=== PATIENT | male | born 1935 | race Caucasian/White ===

== ENCOUNTER 2021-02-11 16:16 | Inpatient (IN) | payer MEDICARE, OTHER ==
[2021-02-11] VITALS (10 sets, daily range): BP systolic 99–118; BP diastolic 49–64
[~2021-02-11] VITALS: Ht 172.7 cm; Wt 51.7 kg
[2021-02-11] MEDS: methylPREDNISolone SOD SUCC 40 MG/ML VIAL IV SCH ×3 (06:00→18:00)
--- NOTE | 2021-02-11 16:18 | NUR ---
PT BIBRA FROM [facility] TO ER BED 05, PER REPORT, PT IS COVID 19 POSITIVE AND WAS NOTED WITH O2 DESATURATION. WHILE BEING TRANSPORTED TO THE HOSPITAL, PT WAS NOTED TO BE UNRESPONSIVE. PT BEING BAG PT. PLACED ON MONITOR. AWAITING MD RODRIGUEZ.
--- NOTE | 2021-02-11 16:20 | NUR ---
IV LINE STARTED BLOOD DRAWN AND SENT TO LAB.
[2021-02-11] MEDS ORDERED: ROCURONIUM BROMIDE 50 MG/5 ML IV ONE (16:26)
[2021-02-11] MEDS ORDERED: ETOMIDATE 2 MG/ML VIAL IV ONE (16:26)
--- NOTE | 2021-02-11 16:48 | NUR ---
CPR INITIATED. SEE CARDIOPULMONARY ARREST RECORD.
[2021-02-11 16:53] LABS: BILIRUBIN,URINE Negative (NEGATIVE); COLOR,URINE YELLOW (YELLOW); LEUKOCYTE ESTERASE ,URINE Negative (NEGATIVE); NITRITE, URINE Negative (NEGATIVE); PH,URINE 5.5 (5.0-8.0); PROTEIN,URINE 100 mg/dl (NEGATIVE); UGLUCOSE 100 MG/DL mg/dL (NEGATIVE); UROBILINOGEN,URINE 0.2 EU/dL (0.2)
[2021-02-11 16:55] LABS: BASOPHILS % (AUTO) 0.1 % (0.0-2.0); HEMATOCRIT 37 % (39-51); LYMPHOCYTES # (AUTO) 0.3 K/uL (0.8-4.8); LYMPHOCYTES % (AUTO) 3.6 % (20.0-44.0); MEAN CORPUSCULAR HGB CONC 33 g/dl (31.0-36.0); MEAN CORPUSCULAR VOLUME 99 fL (80-96); MONOCYTES # (AUTO) 0.2 K/uL (0.1-1.30); MONOCYTES % (AUTO) 2.6 % (2.0-12.0); NEUTROPHILS # (AUTO) 7.9 K/uL (1.8-8.9); NEUTROPHILS % (AUTO) 93.7 % (43.0-81.0); PLATELET COUNT (AUTO) 176 K/uL (150-450); WHITE BLOOD COUNT (AUTO) 8.5 K/uL (4.3-11.0)
[2021-02-11 16:56] LABS: BACTERIA,URINE Rare /HPF (None Seen); RBC,URINE NONE SEEN /HPF (0-2); SQUAMOUS EPITHELIAL CELL,UR Few /HPF (None Seen); WBC,URINE NONE SEEN /HPF (0-3)
[2021-02-11] MEDS ORDERED: CEFEPIME 1 GM in IV D5W 50 ML IV ONE (17:00)
[2021-02-11] MEDS ORDERED: VANCOMYCIN 1 GM in IV D5W 250 ML IV ONE (17:00)
[2021-02-11] MEDS ORDERED: DEXAMETHASONE SOD PHOSPHATE 10 MG/ML VIAL IV ONE (17:00)
--- NOTE | 2021-02-11 17:07 | NUR ---
DR ENNIS BACK AT BEDSIDE FOR CENTRAL LINE PLACEMENT.
[2021-02-11 17:19] LABS: ALANINE AMINOTRANSFERASE 17 U/L (12-78); ALBUMIN 1.8 g/dL (3.4-5.0); ALKALINE PHOSPHATASE 84 U/L (46-116); ASPARTATE AMINOTRANSFERASE 19 U/L (15-37); BILIRUBIN,DIRECT 0.2 mg/dL (0.0-0.2); BILIRUBIN,TOTAL 0.5 mg/dL (0.2-1.0); CALCIUM, SERUM 8.9 mg/dL (8.5-10.1); CARBON DIOXIDE 27 mmol/L (21-32); CHLORIDE 109 mmol/L (98-107); CREATININE 2.3 mg/dL (0.6-1.3); POTASSIUM 3.6 mmol/L (3.5-5.1); SODIUM SERUM 146 mmol/L (136-145); TOTAL PROTEIN, SERUM 6.6 g/dL (6.4-8.2); UREA NITROGEN, BLOOD 63 mg/dL (7-18)
[2021-02-11 17:23] LABS: GLUCOSE 367 mg/dL (74-106)
[2021-02-11] MEDS ORDERED: DEXAMETHASONE SOD PHOSPHATE 10 MG/ML VIAL ONE (17:35)
[2021-02-11] MEDS ORDERED: MAGN400O6 PO (17:40)
[2021-02-11] MEDS ORDERED: ALBU8.5H8 IH (17:40)
[2021-02-11] MEDS ORDERED: ROSU10TA2 PO (17:40)
[2021-02-11] MEDS ORDERED: FURO-144 PO (17:40)
[2021-02-11] MEDS ORDERED: ASCO-352 PO (17:40)
[2021-02-11] MEDS ORDERED: BENZ-13 PO (17:40)
[2021-02-11] MEDS ORDERED: AZIT250T13 PO (17:40)
[2021-02-11] MEDS ORDERED: POTA10TA10 PO (17:40)
[2021-02-11] MEDS ORDERED: CYAN1TAB66 PO (17:40)
[2021-02-11] MEDS ORDERED: PANT40TA2 PO (17:40)
[2021-02-11] MEDS ORDERED: TIOT18CA3 IH (17:40)
[2021-02-11] MEDS ORDERED: NA P133E RC (17:40)
[2021-02-11] MEDS ORDERED: CARV25TA2 PO (17:40)
[2021-02-11] MEDS ORDERED: AMLO-213 PO (17:40)
[2021-02-11] MEDS ORDERED: INSU100V11 SQ (17:40)
[2021-02-11] MEDS ORDERED: ACET-868 PO ×2 (17:40)
[2021-02-11] MEDS ORDERED: BISA10SU11 RC (17:40)
[2021-02-11] MEDS ORDERED: MELA5TAB PO (17:40)
--- NOTE | 2021-02-11 17:45 | NUR ---
MOVE SHEET SUBMITTED AND CALLED FOR ICU BED.
--- NOTE | 2021-02-11 17:50 | NUR ---
DR ENNIS MADE AWARE OF LOW B/P. AWAITING NEW ORDER.
[2021-02-11] MEDS ORDERED: ZOLPIDEM TARTRATE 5 MG TABLET PO PRN (18:00)
[2021-02-11] MEDS ORDERED: MAGNESIUM HYDROXIDE 30 ML UDC PO PRN (18:00)
[2021-02-11] MEDS ORDERED: ACETAMINOPHEN 325 MG TABLET PO PRN ×2 (18:00)
[2021-02-11] MEDS ORDERED: NOREPINEPHRINE 8 MG in IV NS 0.9% 242 ML IV PRN (18:00)
[2021-02-11] MEDS ORDERED: NA PHOS,M-B/NA PHOS,DI-BA 1 EA ENEMA RC PRN (18:00)
[2021-02-11] MEDS ORDERED: MAG HYDROX/AL HYDROX/SIMETH 30 ML UDC PO PRN (18:00)
[2021-02-11] MEDS ORDERED: DEXTROSE 50%-WATER 50 ML DISP.SYRIN IV PRN (18:00)
[2021-02-11] MEDS ORDERED: ONDANSETRON HCL/PF 4 MG/2 ML VIAL IVP PRN (18:00)
[2021-02-11] MEDS ORDERED: Z GUARD REMEDY 2 OZ OINT TP PRN (18:00)
[2021-02-11] MEDS ORDERED: AMIODARONE 150 MG/3 ML VIAL IV ONE (18:00)
[2021-02-11] MEDS ORDERED: ALBUTEROL SULFATE INH 18 GM HFA.AER.AD IH PRN (18:00)
[2021-02-11 18:30] LABS: ABG BASE EXCESS -6.6 mmol/L; ABG OXYGEN SATURATION 98.4 % (92.0-98.5); ABG PCO2 53.4 mmHg (35.0-45.0); ABG PH 7.219 (7.350-7.450); ABG PO2 221.6 mmHg (75.0-100.0); COHb 0.3 % (0.5-1.5); MetHb 0.6 % (0.0-1.5); O2Hb 97.5 % (94.0-97.0); PEEP,BG 0 cm H2O; SITE, ABG Right Femoral; VT, ABG 450 mL
[2021-02-11] MEDS ORDERED: AMIODARONE 150 MG in IV D5W 100 ML IV ONE (18:30)
--- NOTE | 2021-02-11 18:30 | NUR ---
VENT SETTINGS CHANGED. AC 30, TV 450, FI02 50%
--- NOTE | 2021-02-11 18:49 | NUR ---
DAUGHTER LEFT NUMBER FOR ANY UPDATES ON ICU BED. ABLE TO REACH HER AT [phone] ADRIANO BAEZA.
[2021-02-11] MEDS: AMIODARONE 450 MG in IV D5W 241 ML IV PRN (18:54)
[2021-02-11 19:05] LABS: D-DIMER 1.95 mg/L(FEU (0.17-0.50)
--- NOTE | 2021-02-11 19:15 | NUR ---
REPORT TO ALYCIA RODRIGUEZ FOR CHERIE.
--- NOTE | 2021-02-11 19:19 | NUR ---
CALLED LAB FOR COVID SWAB
[2021-02-11] MEDS ORDERED: VANCOMYCIN 1 GM VIAL ONE (19:22)
[2021-02-11] MEDS ORDERED: CEFEPIME 1 GM VIAL ONE (19:22)
[2021-02-11] MEDS ORDERED: NS 0.9% IV ONE (19:30)
[2021-02-11] MEDS ORDERED: ASPIRIN 300 MG/SUPP.RECT RC ONE ×2 (20:00→22:00)
--- NOTE | 2021-02-11 20:03 | NUR ---
BED 252
--- NOTE | 2021-02-11 20:20 | NUR ---
ATTEMPTED TO GIVE REPORT. RN IN PT ROOM
--- NOTE | 2021-02-11 20:28 | NUR ---
GAVE REPORT TO MICHAEL GARCIA FOR CHERIE
--- NOTE | 2021-02-11 20:45 | NUR ---
RT NOTE PT TRANSFERRED TO ICU 252. VENT IS ON ORDERED SETTINGS. PLUGGED INTO RED OUTLET. BMV @ HOB. ALARMS SET AND AUDIBLE. NO DISTRESS NOTED @ THIS TIME. ETT IS SECURE AND PATENT.
--- NOTE | 2021-02-11 20:47 | NUR ---
RECEIVED PT FROM ER INTUBATED EYES OPEN NOT FOLLOWING ANY COMMAND, ON VENT SETTINF PER MD FIO2 50% SPO2 97% PT IS STARTED TO MOVE HIS ARM, SECURE ORDER FOR PROPOFOL FROM HOSPITALIST ARI WILL START ONCE VERIFIED, SAFELY TRANSFER FROM [facility] TO [facility] HOOKED TO MONITOR WITH CURRENT READING SINUS RHYTHM 69 WITH BBB, PT CURRENTLY ON AMIODARONE DRIP @ 1 MG/MIN AND LEVOPHED @ 0.7 MCG/KG/MIN INFUSING WELL VIA R FEM 3L CENTRAL LINE, HEAD TO TOE ASSESSMENT WAS DONE, ADMISSION ASSESSMENT DONE, DROPLET ISOLATION INITIATED FOR R/O COVID 19 BED ON LOWEST POSITION AND LOCKED SIDE RAILS UP X2 BILATERAL SOFT WRIST RESTRAINTS STARTED FOR SELF EXTUBATION PRECAUTION CIRCULATION WILL BE CHECKED REGULARLY WILL CONT TO MONITOR
[2021-02-11] MEDS ORDERED: FENTANYL CITRAT IV 2,500 MCG in IV NS 0.9% 200 ML IV PRN (21:00)
[2021-02-11] MEDS ORDERED: PROPOFOL 100 ML IV PRN (21:00)
[2021-02-11] MEDS: PROPOFOL 100 ML IV PRN (21:20)
[2021-02-11] MEDS ORDERED: NOREPINEPHRINE 8MG/250ML RTU 250 ML IV ONE (21:33)
[2021-02-11] MEDS: NOREPINEPHRINE 8 MG in IV NS 0.9% 242 ML IV PRN (21:53)
[2021-02-11] MEDS ORDERED: PIPERACILLIN /TAZOBACTAM 2.25 G VIAL IV ONE (22:19)
[2021-02-11] MEDS: ZOSYN IVPB 2.25 G in IV D5W 50ml IV SCH (22:36)
[2021-02-11] MEDS: BLOOD SUGAR DIAGNOSTIC 1 EACH STRIP VI SCH (22:36)
[2021-02-11] MEDS: *INSULIN REGULAR(HUMULIN R)HUM 100 UNIT/ML VIAL SQ PRN (22:58)
[2021-02-12] VITALS (94 sets, daily range): BP systolic 77–135; BP diastolic 35–74
[2021-02-12] MEDS: methylPREDNISolone SOD SUCC 40 MG/ML VIAL IV SCH ×3 (00:31→05:33)
--- NOTE | 2021-02-12 00:51 | NUR ---
CALLED [facility] AND ASK REGARDING THE COVID VAX STATUS OF THE PT, PER THE NURSE ON DUTY THEY DONT HAVE ANY DATA REGARDING THE PT COVID VAX WILL FOLLOW UP WITH PT CHILD IN MORNING
[2021-02-12] MEDS ORDERED: NOREPINEPHRINE 8MG/250ML RTU 250 ML IV ONE (00:56)
[2021-02-12] MEDS: NOREPINEPHRINE 8 MG in IV NS 0.9% 242 ML IV PRN (00:57)
[2021-02-12] MEDS: AMIODARONE 450 MG in IV D5W 241 ML IV PRN ×2 (03:04→18:40)
[2021-02-12] MEDS ORDERED: NOREPINEPHRINE 4 MG/4 ML AMPUL IV ONE (03:35)
[2021-02-12] MEDS: ZOSYN IVPB 2.25 G in IV D5W 50ml IV SCH ×4 (03:57→21:12)
[2021-02-12] MEDS: PROPOFOL 100 ML IV PRN ×2 (04:37→17:46)
[2021-02-12] MEDS: NOREPINEPHRINE 32 MG in IV NS 0.9% 218 ML IV PRN ×2 (04:38→16:30)
[2021-02-12 05:00] LABS: BASOPHILS % (AUTO) 0.1 % (0.0-2.0); HEMATOCRIT 34 % (39-51); HEMOGLOBIN 11.4 g/dL (13.5-17.5); LYMPHOCYTES # (AUTO) 0.2 K/uL (0.8-4.8); LYMPHOCYTES % (AUTO) 1.7 % (20.0-44.0); MEAN CORPUSCULAR HGB CONC 33 g/dl (31.0-36.0); MEAN CORPUSCULAR VOLUME 99 fL (80-96); MONOCYTES # (AUTO) 0.2 K/uL (0.1-1.30); MONOCYTES % (AUTO) 1.8 % (2.0-12.0); NEUTROPHILS # (AUTO) 10.3 K/uL (1.8-8.9); NEUTROPHILS % (AUTO) 96.4 % (43.0-81.0); PLATELET COUNT (AUTO) 142 K/uL (150-450); RED BLOOD CELL COUNT(AUTO) 3.44 MIL/uL (4.5-6.0); WHITE BLOOD COUNT (AUTO) 10.7 K/uL (4.3-11.0)
--- NOTE | 2021-02-12 05:08 | NUR ---
TALK TO PATIENT SON CATRACHO ALSO DPOA VIA PHONE [phone] AND GIVE UPDATES TO HIM ABOUT THE CONDITION OF THE PT, SON CATRACHO ALSO TOLD ME THAT PT RECEIVED COVID VAX MODERNA 1ST DOSE IS 2020 SECOND DOSE IS JUN 2020, SON IS REQUESTING UPDATE FROM THE DOCTOR, WILL ENDORSE TO AM RN TO INFORM MD TO UPDATE THE SON
[2021-02-12 05:19] LABS: CALCIUM, SERUM 8.3 mg/dL (8.5-10.1); CARBON DIOXIDE 21 mmol/L (21-32); CHLORIDE 114 mmol/L (98-107); CREATININE 2.3 mg/dL (0.6-1.3); GLUCOSE 256 mg/dL (74-106); MAGNESIUM 1.9 mg/dL (1.8-2.4); PHOSPHORUS 4.4 mg/dL (2.5-4.9); POTASSIUM 3.7 mmol/L (3.5-5.1); SODIUM SERUM 148 mmol/L (136-145); UREA NITROGEN, BLOOD 61 mg/dL (7-18)
[2021-02-12] MEDS: INSULIN REGULAR, HUMAN 100 UNIT/ML 3 ML VIAL SQ PRN ×2 (06:35→17:58)
[2021-02-12] MEDS: BLOOD SUGAR DIAGNOSTIC 1 EACH STRIP VI SCH ×4 (06:35→21:23)
--- NOTE | 2021-02-12 07:10 | NUR ---
INFORMATION TECHNOLOGY ANALYST NOTES RECEIVED PT SEDATED. ON DIPRIVAN @35MCG/KG/MIN. LEVOPHED 32 @0.9MCG/KG/MIN. AMIODARONE DRIP @0.5MG/MIN. R FEMORAL 3 LUMEN INTACT AND PATENT. YATES CATH IN PLACE, DRAINING YELLOW COLORED URINE BY GRAVITY. ISOLATION PRECAUTIONS IN PLACE. BED LOCKED AND IN LOWEST POSITION WITH SIDE RAILS UP. BILATERAL SOFT WRIST RESTRAINTS NOTED. CHECKED FOR CIRCULATION. WILL CONTINUE TO MONITOR.
--- NOTE | 2021-02-12 07:59 | NUR ---
WOUND CARE CONSULT: REVIEWED CHART, NURSING DOCUMENTATION AND PHOTOS WHICH INDICATE DRY SCAB TO LOWER LEG AND SACRAL SCARRING/REDNESS, PRESENT ON ADMISSION. PT IS CURRENTLY INTUBATED. PT IS ON [facility] BED. RECOMMENDATIONS MADE FOR SKIN PROTECTION. DISCUSSED WITH NURSING STAFF. IN AGREEMENT WITH PLAN OF CARE. Addendum: 02/12/21 at 0804 by HERNAN GREENU ADDITIONAL: PER ADMISSION PHOTOS THERE IS DISCOLORATION TO LEFT HEEL. HEELS TO BE FLOATED AT ALL TIMES.
--- NOTE | 2021-02-12 08:15 | NUR ---
RN NOTES PER DR. INTERIANO, OFF SEDATION WITH NO TITRATION.
[2021-02-12 08:40] LABS: ABG BASE EXCESS -5.7 mmol/L; ABG OXYGEN SATURATION 97.7 % (92.0-98.5); ABG PCO2 40.3 mmHg (35.0-45.0); ABG PH 7.315 (7.350-7.450); ABG PO2 108.2 mmHg (75.0-100.0); COHb 0.3 % (0.5-1.5); MetHb 0.2 % (0.0-1.5); O2Hb 97.2 % (94.0-97.0); SITE, ABG Right Radial
[2021-02-12] MEDS ORDERED: LORAZEPAM INJ 2 MG/ML VIAL IV ONE (09:00)
[2021-02-12] MEDS: DEXAMETHASONE SOD PHOSPHATE 10 MG/ML VIAL IV SCH (09:29)
[2021-02-12] MEDS ORDERED: IV NS 0.9% 500 ML IV PRN (09:30)
[2021-02-12] MEDS ORDERED: IV NS 0.9% 1,000 ML IV PRN (09:30)
[2021-02-12] MEDS: IV 1/2NS 1000 ML 1,000 ML IV PRN (12:02)
[2021-02-12] MEDS ORDERED: EPINEPHRINE (1:10,000) SYRINGE 1 MG/10 ML DISP.SYRIN IVP ONE (13:05)
[2021-02-12] MEDS ORDERED: AMIODARONE 150 MG/3 ML VIAL IV ONE (13:05)
[2021-02-12] MEDS ORDERED: CALCIUM CHLORIDE 1,000 MG/10 ML DISP.SYRIN IV ONE (13:05)
[2021-02-12] MEDS ORDERED: GLUCERNA 1.2 1,000 ML BOTTLE NG PRN (15:30)
--- NOTE | 2021-02-12 16:00 | NUR ---
SPOKE TO DR. PICHARDO REGARDING AMIO-CONTINUE DRIP AT MAINTENENCE DOSE AT 0.5 MG / HR PER MD. PHARMACIST JEF MADE AWARE.
--- NOTE | 2021-02-12 16:50 | NUR ---
ICU NOTES SPOKE WITH CATRACHO GALO, RENATE. SAID HE SPOKE WITH DR. TATUM AND CHANGES PT STATUS TO DNR. VERIFIED BY ANOTHER RN. CODE STATUS ORDERED.
[2021-02-12] MEDS: GLUCERNA 1.2 1,000 ML BOTTLE NG PRN (17:07)
--- NOTE | 2021-02-12 17:30 | NUR ---
SPOKE TO DR. ALVARADO REGARDING EEG POSITIVE FOR SEIZURES. PER MD-UNABLE TO SEE PATIENT AT THIS TIME . OUT OF TOWN TIL WEDNESDAY. DR. TATUM MADE AWARE WITH MD ORDERS TO START PATIENT ON KEPPRA 1 GM IV BID.
[2021-02-12] MEDS: LEVETIRACETAM (500MG) 1,000 MG in IV NS 0.9% 100 ML IV SCH (17:59)
--- NOTE | 2021-02-12 19:06 | NUR ---
RECEIVED PT ON BED ORALLY INTUBATED, ON VENT SETTING PER MD ORDER FIO2 40% SPO2 97% NO SIGN OF RESPIRATORY DISTRESS, PT ON DNR STATUS,MOUTH TWITCHING STILL NOTED, BED SIDE MONITOR READS SINUS RHYTHM 80'S WITH EPISODES OF PVC, PT ON AMIODARONE DRIP @ 0.5 MG/MIN, LEVOPHED @0.6 MCG/KG/MIN PROPOFOL @ 20 MCG/KG/MIN AND 1/2 NS @ 75ML/HR INFUSING WELL VIA RFEM 3L CATHETER, HAVE OGTUBE ON PLACE PLACEMENT AND RESIDUAL CHECKED 5ML RUNNING @ 20 ML/HR HAVE YATES CATHETER DRAINING YELLOW URINE VIA GRAVITY HAVE BILATERAL SOFT RESTRAINTS FOR SELF EXTUBATION PRECAUTION, BED ON LOWEST POSITION AND LOCKED SIDE RAILS UP X2 WILL CONT TO MONITOR
[2021-02-12] MEDS: LORAZEPAM INJ 2 MG/ML VIAL IV PRN (19:51)
--- NOTE | 2021-02-12 20:18 | NUR ---
PT INTUBATED ON [facility] VENT. 7.5 ETT SECURED AT 25CM AT THE LIP. PT TOLERATING VENT SETTINGS. SX'D SMALL AMT OF PORRAS SECRETIONS. VENT ALARMS SET AND AUDIBLE. ETT CUFF CHECKED. VENT PLUGGED INTO RED OUTLET. Addendum: 02/12/21 at 2020 by PABLITO BEEBE RT Amended: Links added.
[2021-02-12] MEDS: *INSULIN REGULAR(HUMULIN R)HUM 100 UNIT/ML VIAL SQ PRN (21:22)
[2021-02-13] VITALS (96 sets, daily range): BP systolic 96–129; BP diastolic 48–64
--- NOTE | 2021-02-13 01:33 | NUR ---
PT STILL ORALLY INTUBATED, ON VENT SETTING PER MD FIO2 40% SPO2 98% NO RESPIRATORY DISTRESS NOTED, INTERMITTENT TWITCHING OF MOUTH STILL NOTED, STILL ON PROPOFOL 20 MCG/KG/MIN, LEVOPHED @ 0.5 MCG/KG/MIN AMIODARONE @ 0.5 MG/MIN AND 1/2 NS @ 75 ML/HR INFUSING VIA RFEM 3L CATH, WILL CONT TO MONITOR
[2021-02-13] MEDS: LORAZEPAM INJ 2 MG/ML VIAL IV PRN ×2 (02:28→06:16)
[2021-02-13] MEDS: PROPOFOL 100 ML IV PRN ×4 (03:05→23:38)
[2021-02-13] MEDS: ZOSYN IVPB 2.25 G in IV D5W 50ml IV SCH ×4 (03:33→22:00)
[2021-02-13] MEDS: IV 1/2NS 1000 ML 1,000 ML IV PRN (03:59)
[2021-02-13 04:17] LABS: BASOPHILS % (AUTO) 0.1 % (0.0-2.0); HEMATOCRIT 30 % (39-51); HEMOGLOBIN 9.9 g/dL (13.5-17.5); LYMPHOCYTES # (AUTO) 0.3 K/uL (0.8-4.8); LYMPHOCYTES % (AUTO) 1.6 % (20.0-44.0); MEAN CORPUSCULAR HGB CONC 33 g/dl (31.0-36.0); MEAN CORPUSCULAR VOLUME 99 fL (80-96); MONOCYTES # (AUTO) 0.4 K/uL (0.1-1.30); MONOCYTES % (AUTO) 2.2 % (2.0-12.0); NEUTROPHILS # (AUTO) 16.2 K/uL (1.8-8.9); NEUTROPHILS % (AUTO) 96.1 % (43.0-81.0); PLATELET COUNT (AUTO) 118 K/uL (150-450); RED BLOOD CELL COUNT(AUTO) 3.02 MIL/uL (4.5-6.0); WHITE BLOOD COUNT (AUTO) 16.9 K/uL (4.3-11.0)
[2021-02-13 04:32] LABS: CALCIUM, SERUM 8.2 mg/dL (8.5-10.1); CARBON DIOXIDE 18 mmol/L (21-32); CHLORIDE 110 mmol/L (98-107); CREATININE 2.6 mg/dL (0.6-1.3); GLUCOSE 244 mg/dL (74-106); MAGNESIUM 1.9 mg/dL (1.8-2.4); PHOSPHORUS 5.4 mg/dL (2.5-4.9); POTASSIUM 3.9 mmol/L (3.5-5.1); SODIUM SERUM 144 mmol/L (136-145); UREA NITROGEN, BLOOD 73 mg/dL (7-18)
[2021-02-13] MEDS: LEVETIRACETAM (500MG) 1,000 MG in IV NS 0.9% 100 ML IV SCH ×2 (05:13→20:18)
[2021-02-13] MEDS: BLOOD SUGAR DIAGNOSTIC 1 EACH STRIP VI SCH ×4 (06:51→22:14)
[2021-02-13] MEDS: INSULIN REGULAR, HUMAN 100 UNIT/ML 3 ML VIAL SQ PRN ×4 (06:56→22:16)
--- NOTE | 2021-02-13 07:10 | NUR ---
STOKER INSTALLATION MECHANIC NOTES RECEIVED PT ORALLY INTUBATED. SEDATED ON DIPRIVAN @20MCG/KG/MIN. LEVOPHED 32 @0.5MCG/KG/MIN. AMIODARONE DRIP @0.5MG/MIN. R FEMORAL 3 LUMEN INTACT AND PATENT. YATES CATH IN PLACE, DRAINING YELLOW COLORED URINE BY GRAVITY. ISOLATION PRECAUTIONS IN PLACE. BED LOCKED AND IN LOWEST POSITION WITH SIDE RAILS UP. BILATERAL SOFT WRIST RESTRAINTS NOTED. CHECKED FOR CIRCULATION. WILL CONTINUE TO MONITOR.
--- NOTE | 2021-02-13 07:14 | NUR ---
PT STILL ON BED ORALLY INTUBATED, ON VENT SETTING PER MD ORDER FIO2 40% SPO2 98% NO SIGN OF RESPIRATORY DISTRESS, MOUTH TWITCHING STILL NOTED, PRN ATIVAN WAS GIVEN, BEDSIDE MONITOR READS SINUS RHYTHM WITH BBB HR 80S STILL ON PROPOFOL 20 MCG/KG/MIN, LEVOPHED @ 0.5 MCG/KG/MIN AMIODARONE DRIP 0.5 MG/MIN AND NS @ 75 ML/HR INFUSING WELL VIA R FEM 3L CATH, NO SIGNIFICANT CHANGES ON CONDITION NOTED, ALL NEEDS ATTENDED, BILATERAL WRIST RESTRAINTS MAINTAIN FOR SELF EXTUBATION PRECAUTION WITH GOOD PERIPHERAL CIRCULATION STILL NOTED, BED ON LOWEST POSITION AND LOCKED SIDE RAILS UP X2 WILL ENDORSE TO AM SHIFT NURSE
[2021-02-13] MEDS: DEXAMETHASONE SOD PHOSPHATE 10 MG/ML VIAL IV SCH (08:46)
[2021-02-13] MEDS: AMIODARONE HCL 200 MG TABLET PO SCH ×3 (09:05→17:04)
[2021-02-13] MEDS: NOREPINEPHRINE 32 MG in IV NS 0.9% 218 ML IV PRN (09:30)
[2021-02-13] MEDS: HEPARIN SODIUM, PORCINE 5000 UNITS/1 ML VIAL SQ SCH ×2 (10:08→20:19)
[2021-02-13] MEDS: VANCOMYCIN 0.75 GM in IV D5W 250 ML IV SCH (11:47)
[2021-02-13] MEDS: GLUCERNA 1.2 1,000 ML BOTTLE NG PRN (18:12)
--- NOTE | 2021-02-13 18:57 | NUR ---
LEHR LOADER NOTES PT ORALLY INTUBATED. SEDATED ON DIPRIVAN @40MCG/KG/MIN. LEVOPHED 32 @0.5MCG/KG/MIN. R FEMORAL 3 LUMEN INTACT AND PATENT. YATES CATH IN PLACE, DRAINING YELLOW COLORED URINE BY GRAVITY. ISOLATION PRECAUTIONS IN PLACE. BED LOCKED AND IN LOWEST POSITION WITH SIDE RAILS UP. BILATERAL SOFT WRIST RESTRAINTS NOTED. CHECKED FOR CIRCULATION. ALL DUE MEDS GIVEN. KEPT CLEAN AND COMFORTABLE. WILL ENDORSE TO NIGHT RN FOR CHERIE.
--- NOTE | 2021-02-13 19:45 | NUR ---
MENTAL TELEPATHIST OPENING NOTE RECEIVED PT ORALLY INTUBATED WITH VENT SETTINGS FOLLOWS: AC 30 TV 450 FIO2 40% PEEP 5, TOLERATING SETTINGS WELL WITH NO RESP. DISTRESS NOTED. SEDATED WITH PROPOFOL RUNNING AT @ 40MCG/KG/MIN. LEVOPHED DRIP RUNNING @0.5MCG/KG/MIN, VSS. (R) FEMORAL TRIPLE LUMEN CATH FLUSHED AND PATENT WITH CLEAN DRY AND INTACT DRESSING. YATES CATH IN PLACE FREE OF KINKS OR OBSTRUCTIONS, DRAINING BY GRAVITY YELLOW COLORED URINE. ISOLATION PRECAUTIONS IN PLACE FOR COVID. OGT NOTED, FLUSHED AND PATENT. AUSCULTATED FOR POSITIVE PLACEMENT WITH NO RESIDUAL. RUNNING GLUCERNA AT 40 ML/HR WHICH IS CURRENT GOAL RATE. SAFETY MEASURES IMPLEMENTED: BED LOCKED AND IN LOWEST POSITION WITH SIDE RAILS UP X3, BED ALARM ON, HOB ELEVATED. BILATERAL SOFT WRIST RESTRAINTS DISCONTINUED. NO ACUTE DISTRESS NOTED AT THIS TIME.
--- NOTE | 2021-02-13 19:58 | NUR ---
PT INTUBATED ON [facility] VENT. PT TOLERATING VENT SETTINGS. 7.5 ETT SECURED AT 25CM AT THE LIP. VENT ALARMS SET AND AUDIBLE. SX'D SMALL AMT OF THIN PORRAS SECRETIONS. Addendum: 02/13/21 at 1959 by PABLITO BEEBE RT Amended: Links added.
--- NOTE | 2021-02-13 22:00 | NUR ---
BRANCH LOGISTICS SUPERVISOR NOTE POC GLUCOSE TEST COMPLETED, 260 MG/DL; 6 UNITS OF REGULAR INSULIN SQ GIVEN PER SLIDING SCALE.
[2021-02-14] VITALS (88 sets, daily range): BP systolic 73–140; BP diastolic 36–64
--- NOTE | 2021-02-14 02:00 | NUR ---
DISTRIBUTION CENTER ASSISTANT NOTE UNABLE TO TAKE ORAL OR AXILLARY TEMPERATURE. RECTAL TEMP OF 93 DEGREES NOTED. NICOLETTE SCHAEFFER DIGITAL CONTENT MARKETING MANAGER NOTIFIED AND CADENCE TAVAREZ IMPLEMENTED. VSS.
--- NOTE | 2021-02-14 03:22 | NUR ---
WEB PROGRAMMER NOTE TEMPERATURE NOW STEADILY INCREASING FROM 93 DEGREES TO 97.9 DEGREES AFTER IMPLEMENTATION OF MIRELA MARINELLI. NO OTHER DISTRESS NOTED.
[2021-02-14] MEDS: ZOSYN IVPB 2.25 G in IV D5W 50ml IV SCH ×4 (03:43→22:04)
[2021-02-14] MEDS: NOREPINEPHRINE 32 MG in IV NS 0.9% 218 ML IV PRN (04:05)
[2021-02-14] MEDS: PROPOFOL 100 ML IV PRN (04:06)
[2021-02-14 04:57] LABS: BASOPHILS % (AUTO) 0.1 % (0.0-2.0); HEMATOCRIT 29 % (39-51); HEMOGLOBIN 9.8 g/dL (13.5-17.5); LYMPHOCYTES # (AUTO) 0.3 K/uL (0.8-4.8); LYMPHOCYTES % (AUTO) 1.9 % (20.0-44.0); MEAN CORPUSCULAR HGB CONC 34 g/dl (31.0-36.0); MEAN CORPUSCULAR VOLUME 98 fL (80-96); MONOCYTES # (AUTO) 0.6 K/uL (0.1-1.30); MONOCYTES % (AUTO) 3.6 % (2.0-12.0); NEUTROPHILS # (AUTO) 15.1 K/uL (1.8-8.9); NEUTROPHILS % (AUTO) 94.4 % (43.0-81.0); PLATELET COUNT (AUTO) 123 K/uL (150-450); RED BLOOD CELL COUNT(AUTO) 2.95 MIL/uL (4.5-6.0); WHITE BLOOD COUNT (AUTO) 15.9 K/uL (4.3-11.0)
[2021-02-14 05:14] LABS: CALCIUM, SERUM 8.4 mg/dL (8.5-10.1); CARBON DIOXIDE 18 mmol/L (21-32); CHLORIDE 107 mmol/L (98-107); CREATININE 2.9 mg/dL (0.6-1.3); GLUCOSE 277 mg/dL (74-106); MAGNESIUM 2.2 mg/dL (1.8-2.4); PHOSPHORUS 5.7 mg/dL (2.5-4.9); POTASSIUM 3.9 mmol/L (3.5-5.1); SODIUM SERUM 142 mmol/L (136-145)
[2021-02-14 05:38] LABS: UREA NITROGEN, BLOOD 85 mg/dL (7-18)
--- NOTE | 2021-02-14 06:00 | NUR ---
HOT SAW OPERATOR NOTE CRITICAL LAB VALUE RECEIVED FROM SHAHRAM IN LABORATORY: BUN LEVEL OF 85. NICOLETTE ANTOINE AWARE; STATES SHE WILL FOLLOW UP WITH FAMILY REGARDING FURTHER INTERVENTIONS. NO NEW ORDERS AT THIS TIME.
--- NOTE | 2021-02-14 06:24 | NUR ---
GAS PUMPING STATION HELPER CLOSING NOTE PT REMAINS ORALLY INTUBATED WITH VENT SETTINGS FOLLOWS: AC 30 TV 450 FIO2 40% PEEP 5, TOLERATING SETTINGS WELL WITH NO RESP. DISTRESS NOTED. SEDATED WITH PROPOFOL RUNNING AT @ 40MCG/KG/MIN. LEVOPHED DRIP INCREASED AND RUNNING @ 0.6 MCG/KG/MIN, VSS. (R) FEMORAL TRIPLE LUMEN CATH FLUSHED AND PATENT WITH CLEAN DRY AND INTACT DRESSING. (L) AC #20 AND (R) AC#18 SALINE LOCK. YATES CATH IN PLACE FREE OF KINKS OR OBSTRUCTIONS, DRAINING BY GRAVITY YELLOW COLORED URINE; 300 ML OUTPUT. ISOLATION PRECAUTIONS IN PLACE FOR COVID. OGT NOTED, FLUSHED AND PATENT. AUSCULTATED FOR POSITIVE PLACEMENT WITH NO RESIDUAL. RUNNING GLUCERNA AT 40 ML/HR WHICH IS CURRENT GOAL RATE. PT KEPT CLEAN AND DRY. WOUND CARE COMPLETED ORDERS. ALL NEEDS AND ORDERED MET. PT REMAINS ON CADENCE HUGGER D/T HYPOTHERMIA; HOWEVER TEMP NOW INCREASING SINCE CADENCE HUGGER IMPLEMENTATION; LATEST TEMP 97.9. SAFETY MEASURES IMPLEMENTED: BED LOCKED AND IN LOWEST POSITION WITH SIDE RAILS UP X3, BED ALARM ON, HOB ELEVATED. BILATERAL SOFT WRIST RESTRAINTS DISCONTINUED. NO ACUTE DISTRESS NOTED AT THIS TIME. WILL ENDORSE TO MORNING SHIFT RN.
--- NOTE | 2021-02-14 07:30 | NUR ---
AUTOMOTIVE GLASS SPECIALIST OPENING NOTE RECEIVED REPORT FROM PM NURSE.PT REMAINS ORALLY INTUBATED WITH VENT SETTINGS FOLLOWS: AC 30 TV 450 FIO2 40% PEEP 5, TOLERATING SETTINGS WELL WITH NO RESP. DISTRESS NOTED. SEDATED WITH PROPOFOL RUNNING AT @ 40MCG/KG/MIN. LEVOPHED DRIP INCREASED AND RUNNING @ 0.6 MCG/KG/MIN, VSS. CENTRAL LINE ON (R) FEMORAL TRIPLE LUMEN CATH FLUSHED AND PATENT WITH CLEAN DRY AND INTACT DRESSING. (L) AC #20 AND (R) AC#18 SALINE LOCK. YATES CATH IN PLACE FREE OF KINKS OR OBSTRUCTIONS, DRAINING BY GRAVITY YELLOW COLORED URINE. ISOLATION PRECAUTIONS IN PLACE FOR COVID. OGT NOTED, FLUSHED AND PATENT. 15 ML RESIDUAL. RUNNING GLUCERNA AT 40 ML/HR WHICH IS CURRENT GOAL RATE. PT REMAINS ON CADENCE HUGGER D/T HYPOTHERMIA;SAFETY MEASURES IMPLEMENTED: BED LOCKED AND IN LOWEST POSITION WITH SIDE RAILS UP X3, BED ALARM ON, HOB ELEVATED. WILL CONTINUE TO MONITOR.
[2021-02-14] MEDS: AMIODARONE HCL 200 MG TABLET PO SCH ×3 (08:08→16:34)
[2021-02-14] MEDS: DEXAMETHASONE SOD PHOSPHATE 10 MG/ML VIAL IV SCH (08:08)
[2021-02-14] MEDS: BLOOD SUGAR DIAGNOSTIC 1 EACH STRIP VI SCH ×4 (08:09→22:18)
[2021-02-14] MEDS: INSULIN REGULAR, HUMAN 100 UNIT/ML 3 ML VIAL SQ PRN ×3 (08:36→17:30)
[2021-02-14] MEDS: LEVETIRACETAM (500MG) 1,000 MG in IV NS 0.9% 100 ML IV SCH ×2 (08:37→20:38)
[2021-02-14] MEDS: HYDROCORTISONE SOD SUCCINATE 100 MG/2 ML VIAL IV SCH ×3 (09:30→20:38)
[2021-02-14] MEDS: HEPARIN SODIUM, PORCINE 5000 UNITS/1 ML VIAL SQ SCH ×2 (09:34→20:39)
--- NOTE | 2021-02-14 10:00 | NUR ---
DERRICK WORKER WELL SERVICE NOTE PATIENT'S PLATELET IS 123. MADE AWARE.OK TO GIVE HEPARIN.FAMILY UPDATED WITH PATIENT CONDITION.SPOKE TO DAUGHTER.WILL CONTINUE TO MONITOR.
--- NOTE | 2021-02-14 13:15 | NUR ---
MADE AWARE ABOUT PATIENT CONDITION AND OFF PROPOFOL ,STILL PATIENT DO NOT RESPONDING.PUPIL IS VERY SLUGGISH REACTION.NO SEIZURE NOTED.ADVISED TO KEEP TURN OFF AND TURN ON IF ANY SEIZURE ACTIVITY.WILL ENDORSE TO PM NURSE TO FOLLOW UP ORDERS AND FOLLOW UP WITH FOR NEW ORDERS IN AM.
[2021-02-14] MEDS: IV NS 0.9% 1,000 ML IV PRN (15:10)
[2021-02-14] MEDS: ACETAMINOPHEN 325 MG TABLET PO PRN (16:36)
--- NOTE | 2021-02-14 18:19 | NUR ---
CLINICAL PROGRAM MANAGER CLOSING NOTE PATIENT IS STILL INTUBATED ON VENTILATOR.NO SOB NO DISTRESS NOTED.TOLERATING SETTINGS WELL.NO SEIZURE OBSERVED DURING SHIFT.OFF FROM PROPOFOL AND LEVO.ON NS @90ML/HR.YATES CATH DRAINING CLEAR YELLOW URINE.ON OGT FEEDING TOLERATING WELL NO RESIDUAL.SAFETY AND ASPIRATION MEASURES IN PLACE.BED IS LOCKED AND IN LOCKED POSITION.CALL LIGHT IN REACH.BED ALARM IS ON.SRX3.ALL NEEDS MET.WILL ENDORSE TO PM NURSE FOR CHERIE.
--- NOTE | 2021-02-14 20:00 | NUR ---
RN NOTE PT [facility] WITH SETTING OF AC 20 TV 450 FIO2 40% P 5.. NO SIGNS OF DISTRESS NOTED. O2 SAT AT 100%. PT UNRESPONSIVE TO STIMULI, PUPILS SLUGGISH, REACTIVE TO LIGHT. WITH OGT IN PLACE, AUSCULTATED FOR PLACEMENT/PATENCY. ON GLUCERNA FEEDING AT 40ML/HR. MINIMAL RESIDUALS WERE NOTED. KEPT HOB ELEVATED. PT ON IVF NS AT 90ML/HR. R. FEMORAL TLC INTACT AND PATENT, ALL FLUSHES WELL. YATES DRAINING CLEAR URINE OUTPUT. ALL SAFETY MEASURES IN PLACE PER PROTOCOL. WILL CONTINUE TO MONITOR.
[2021-02-14] MEDS: GLUCERNA 1.2 1,000 ML BOTTLE NG PRN (22:04)
[2021-02-14] MEDS: *INSULIN REGULAR(HUMULIN R)HUM 100 UNIT/ML VIAL SQ PRN (22:25)
[2021-02-14] MEDS: VANCOMYCIN 0.75 GM in IV D5W 250 ML IV SCH (23:11)
[2021-02-15] VITALS (59 sets, daily range): BP systolic 104–135; BP diastolic 45–76
[2021-02-15] MEDS: ZOSYN IVPB 2.25 G in IV D5W 50ml IV SCH ×4 (04:01→21:39)
[2021-02-15] MEDS: IV NS 0.9% 1,000 ML IV PRN (04:01)
[2021-02-15] MEDS: HYDROCORTISONE SOD SUCCINATE 100 MG/2 ML VIAL IV SCH ×3 (04:02→20:23)
[2021-02-15 05:18] LABS: BASOPHILS % (AUTO) 0.2 % (0.0-2.0); HEMATOCRIT 28 % (39-51); HEMOGLOBIN 9.4 g/dL (13.5-17.5); LYMPHOCYTES # (AUTO) 0.2 K/uL (0.8-4.8); LYMPHOCYTES % (AUTO) 2.4 % (20.0-44.0); MEAN CORPUSCULAR HGB CONC 34 g/dl (31.0-36.0); MEAN CORPUSCULAR VOLUME 99 fL (80-96); MONOCYTES # (AUTO) 0.3 K/uL (0.1-1.30); MONOCYTES % (AUTO) 3.5 % (2.0-12.0); NEUTROPHILS # (AUTO) 8.6 K/uL (1.8-8.9); NEUTROPHILS % (AUTO) 93.9 % (43.0-81.0); PLATELET COUNT (AUTO) 80 K/uL (150-450); RED BLOOD CELL COUNT(AUTO) 2.82 MIL/uL (4.5-6.0); WHITE BLOOD COUNT (AUTO) 9.2 K/uL (4.3-11.0)
[2021-02-15 05:47] LABS: CALCIUM, SERUM 7.7 mg/dL (8.5-10.1); CARBON DIOXIDE 20 mmol/L (21-32); CHLORIDE 108 mmol/L (98-107); CREATININE 3.2 mg/dL (0.6-1.3); GLUCOSE 218 mg/dL (74-106); MAGNESIUM 2.4 mg/dL (1.8-2.4); PHOSPHORUS 5.8 mg/dL (2.5-4.9); POTASSIUM 4.3 mmol/L (3.5-5.1); SODIUM SERUM 140 mmol/L (136-145)
[2021-02-15 05:56] LABS: UREA NITROGEN, BLOOD 102 mg/dL (7-18)
--- NOTE | 2021-02-15 07:00 | NUR ---
RN NOTE RECEIVED PT ORALLY INTUBATED, NO SEDATION, PT, DOES NOT FOLLOW COMMAND, PUPILS SLUGGISH, REACTIVE TO LIGHT. O2 SAT WNL, TOLERATING VENT SETTING WELL, O2 SAT WNL, WITH OGT IN PLACE, AUSCULTATED FOR PLACEMENT/PATENCY. ON GLUCERNA FEEDING AT 40ML/HR. MINIMAL RESIDUALS WERE NOTED. KEPT HOB ELEVATED. PT ON IVF NS AT 90ML/HR. R. FEMORAL TLC INTACT AND PATENT, ALL FLUSHES WELL. YATES DRAINING CLEAR URINE OUTPUT. ALL SAFETY MEASURES IN PLACE PER PROTOCOL. WILL CONTINUE TO MONITOR.
--- NOTE | 2021-02-15 07:09 | NUR ---
RN NOTE NO SIGNIFICANT CHANGES NOTED. PT UNABLE TO COMMUNICATE, SEEN PT SQUINTING EYES BUTMN Addendum: 02/15/21 at 0712 by SANDOR GANT RN PT NOT OPENING EYES, BUT REACTIVE TO LIGHT. PT TOLERATING VENT SETTINGS. NO DISTRESS NOTED, CONTINUE ON IVF NS AT 90ML/HR. ALL DUE ATBS GIVEN ORDERED. REMAIN AFEBRILE. YATES DRAINING WELL. ENDORSED TO NEXT SHIFT NURSE FOR CHERIE.
[2021-02-15 07:28] LABS: BAND % (MANUAL) 2 % (0.0-5.0); LYMPHOCYTES % (MANUAL) 4 % (16-48); MONOCYTES % (MANUAL) 3 % (0-11.0); NEUTROPHILS % (MANUAL) 91 (42-76)
[2021-02-15] MEDS: LEVETIRACETAM (500MG) 1,000 MG in IV NS 0.9% 100 ML IV SCH ×2 (08:27→20:23)
[2021-02-15] MEDS: INSULIN REGULAR, HUMAN 100 UNIT/ML 3 ML VIAL SQ PRN ×3 (08:28→17:33)
[2021-02-15] MEDS: DEXAMETHASONE SOD PHOSPHATE 10 MG/ML VIAL IV SCH (08:29)
[2021-02-15] MEDS: BLOOD SUGAR DIAGNOSTIC 1 EACH STRIP VI SCH ×4 (08:29→22:00)
[2021-02-15] MEDS: AMIODARONE HCL 200 MG TABLET PO SCH ×3 (08:30→16:23)
[2021-02-15] MEDS: HEPARIN SODIUM, PORCINE 5000 UNITS/1 ML VIAL SQ SCH ×2 (09:00→20:52)
--- NOTE | 2021-02-15 09:01 | NUR ---
RN NOTES HEPARIN HELD PER DR INTERIANO ORDER , PLT =80.
--- NOTE | 2021-02-15 12:00 | NUR ---
RN NOTES ET CARE DONE , NO PAINFUL STIMULI RESPOND NOTED, CONTINUE TO MONITOR .
--- NOTE | 2021-02-15 18:00 | NUR ---
RN NOTES PT NOT OPENING EYES, DOES NOT FOLLOW COMMAND, NO RESPIRATORY DISTRESS NOTED . PT TOLERATING VENT SETTINGS. NO DISTRESS NOTED, WILL ENDORSED TO NEXT SHIFT NURSE FOR CHERIE.
--- NOTE | 2021-02-15 19:39 | NUR ---
RT NOTES PT RECEIVED ORALLY INTUBATED ON [facility] VENT W/ 7.5 ETT SECURED AT 25CM AT THE LIP. PT TOLERATING CURRENT VENT AC MODE SETTINGS. BRANCH RETAIL EXECUTIVE DONE. SX'D NONE TO SCANT AMT OF THIN PORRAS SECRETIONS. VENT ALARMS SET AND AUDIBLE. VENT CONT TO RED OUTLET. WILL CONT TO MONITOR. Addendum: 02/16/21 at 0203 by CAITLYN FERGUSON RT Amended: Links added.
--- NOTE | 2021-02-15 20:00 | NUR ---
RN NOTE RECEIVED PT ON [facility] VENT. NOT IN ANY DISTRESS. O2 SAT AT 100%. PT UNRESPONSIVE TO ANY STIMULI, PUPILS SLUGGISH, REACTIVE TO LIGHT. SR ON TELE MONITOR WITH HR OF 80S. WITH OGT IN PLACE, AUSCULTATED FOR PLACEMENT/PATENCY. ON GLUCERNA FEEDING AT 40ML/HR. NO RESIDUALS WERE NOTED. KEPT HOB ELEVATED. R. FEMORAL TLC INTACT AND PATENT, ALL LUMEN FLUSHES WELL. YATES DRAINING CLEAR URINE OUTPUT BY GRAVITY. ALL SAFETY MEASURES IN PLACE PER PROTOCOL. WILL CONTINUE TO MONITOR.
--- NOTE | 2021-02-15 20:50 | NUR ---
RN NOTE HELD DUE HEPARIN. ENDORSED BY MORNING SHIFT NURSE TO HOLD HEPARIN PER DR INTERIANO ORDER DUE TO PLT 80.
[2021-02-15] MEDS: *INSULIN REGULAR(HUMULIN R)HUM 100 UNIT/ML VIAL SQ PRN (21:59)
[2021-02-15] MEDS: GLUCERNA 1.2 1,000 ML BOTTLE NG PRN (22:21)
[2021-02-16] VITALS (32 sets, daily range): BP systolic 95–134; BP diastolic 55–69
[2021-02-16] MEDS: ZOSYN IVPB 2.25 G in IV D5W 50ml IV SCH ×4 (04:28→21:46)
[2021-02-16] MEDS: HYDROCORTISONE SOD SUCCINATE 100 MG/2 ML VIAL IV SCH ×3 (04:28→21:44)
--- NOTE | 2021-02-16 06:43 | NUR ---
RN NOTE NO SIGNIFICANT CHANGES NOTED FROM PT. TOLERATING VENT SETTINGS WITH 100% O2 SAT. NO SIGNS OF ANY DISTRESS. OGT REMAIN PATENT AND IN PLACE, TOLERATING GT FEEDING WITH MINIMAL RESIDUAL. KEPT HOB ELEVATED. PT HAD 2 LARGE BM. KEPT CLEAN AND DRY. YATES DRAINING WELL CLEAR YELLOW URINE OUTPUT BY GRAVITY. VS REMAIN STABLE, AFEBRILE. ALL SAFETY MEASURES MAINTAINED. WILL ENDORSE TO NEXT SHIFT NURSE FOR CHERIE.
--- NOTE | 2021-02-16 07:15 | NUR ---
RN NOTE PATIENT ON BED, LETHARGIC AT THIS TIME, ON JEVITY 1.2 @20 CC/HR TOLERATING WELL, ON SIMPLE MASK @8LPM O2 SAT OF 94%, WITH RIGHT FEMORAL TRIPLE LUMEN CATHETER AND RIGHT AC #20 PATENT INFUSING WELL, ON YATES CATHETER DRAINING WELL NO HEMATURIA NOTED. BED WHEELS LOCK, CALL LIGHT WITHIN REACH, SAFETY MEASURE OBSERVED, CALL LIGHT WITHIN REACH. Addendum: 02/16/21 at 1922 by SUSI ANGELA RN RN NOTE PATIENT OBSERVED ON BED, OBTUNDED, ON TELE MONITOR SR AT THIS TIME, ON GLUCERNA 1.2 @ 40CC/HR RIGHT FEMORAL TRIPLE LUMEN CATHETER PATENT FLUSHING WELL, RIGHT AC 18 PATENT INFUSING WELL, PATIENT INTUBATED TOLERATING WELL O2 SAT OF 98%, WITH YATES CATHETER DRAINING WELL NO HEMATURIA NOTED, BED WHEELS LOCK, CALL LIGHT WITHIN REACH, SAFETY MEASURE OBSERVED, CALL LIGHT WITHIN REACH.
[2021-02-16] MEDS: INSULIN REGULAR, HUMAN 100 UNIT/ML 3 ML VIAL SQ PRN ×3 (07:17→17:30)
[2021-02-16] MEDS: BLOOD SUGAR DIAGNOSTIC 1 EACH STRIP VI SCH ×4 (07:34→22:01)
[2021-02-16 07:36] LABS: CALCIUM, SERUM 8.1 mg/dL (8.5-10.1); CARBON DIOXIDE 20 mmol/L (21-32); CHLORIDE 108 mmol/L (98-107); CREATININE 3.3 mg/dL (0.6-1.3); GLUCOSE 233 mg/dL (74-106); POTASSIUM 4.5 mmol/L (3.5-5.1); SODIUM SERUM 142 mmol/L (136-145)
[2021-02-16 07:48] LABS: UREA NITROGEN, BLOOD 116 mg/dL (7-18)
[2021-02-16] MEDS: LEVETIRACETAM (500MG) 1,000 MG in IV NS 0.9% 100 ML IV SCH ×2 (08:30→19:32)
[2021-02-16] MEDS: AMIODARONE HCL 200 MG TABLET PO SCH ×3 (08:38→16:16)
[2021-02-16] MEDS: DEXAMETHASONE SOD PHOSPHATE 10 MG/ML VIAL IV SCH (08:40)
[2021-02-16 08:57] LABS: BASOPHILS % (AUTO) 0.1 % (0.0-2.0); HEMATOCRIT 31 % (39-51); HEMOGLOBIN 10.4 g/dL (13.5-17.5); LYMPHOCYTES # (AUTO) 0.2 K/uL (0.8-4.8); LYMPHOCYTES % (AUTO) 2.5 % (20.0-44.0); MEAN CORPUSCULAR HGB CONC 33 g/dl (31.0-36.0); MEAN CORPUSCULAR VOLUME 99 fL (80-96); MONOCYTES # (AUTO) 0.3 K/uL (0.1-1.30); MONOCYTES % (AUTO) 2.9 % (2.0-12.0); NEUTROPHILS # (AUTO) 9.3 K/uL (1.8-8.9); NEUTROPHILS % (AUTO) 94.5 % (43.0-81.0); PLATELET COUNT (AUTO) 83 K/uL (150-450); RED BLOOD CELL COUNT(AUTO) 3.16 MIL/uL (4.5-6.0); WHITE BLOOD COUNT (AUTO) 9.8 K/uL (4.3-11.0)
[2021-02-16] MEDS: HEPARIN SODIUM, PORCINE 5000 UNITS/1 ML VIAL SQ SCH ×2 (08:58→21:00)
--- NOTE | 2021-02-16 08:58 | NUR ---
RN NOTE PATIENT SEEN BY DR. INTERIANO HOLD HEPARIN THIS AM.
--- NOTE | 2021-02-16 19:23 | NUR ---
RN NOTE PATIENT OBSERVED ON BED, OBTUNDED, ON TELE MONITOR SR AT THIS TIME, ON GLUCERNA 1.2 @ 40CC/HR RIGHT FEMORAL TRIPLE LUMEN CATHETER PATENT FLUSHING WELL, RIGHT AC 18 PATENT INFUSING WELL, PATIENT INTUBATED TOLERATING WELL O2 SAT OF 98%, WITH YATES CATHETER DRAINING WELL NO HEMATURIA NOTED, NO SEIZURE EPISODE DURING THE SHIFT.BED WHEELS LOCK, CALL LIGHT WITHIN REACH, SAFETY MEASURE OBSERVED, CALL LIGHT WITHIN REACH. WILL ENDORSE TO NOC SHIFT.
--- NOTE | 2021-02-16 20:11 | NUR ---
RN NOTES RECEIVED [facility]. NO ACUTE RESPIRATORY DISTRESS O2 SAT AT 100%. PT UNRESPONSIVE TO ANY STIMULI, PUPILS SLUGGISH, REACTIVE TO LIGHT. SR ON TELE MONITOR WITH HR OF 84. WITH OGT IN PLACE, AUSCULTATED FOR PLACEMENT RUNNING ON GLUCERNA FEEDING AT 40ML/HR. 20 CC RESIDUAL NOTED. KEPT HOB ELEVATED. RIGHT FEMORAL TLC INTACT AND PATENT FLUSHED ASEPTICALLY. YATES CATHETER DRAINING YELLOW URINE OUTPUT BY GRAVITY. BED LOCKED AND IN LOWEST POSITION. CALL LIGHT WITHIN REACH. ALL NEEDS ANTICIPATED.
--- NOTE | 2021-02-16 21:45 | NUR ---
NOTIFIED NICOLETTE SCHAEFFER, PLATELET LEVL 83 WITH ORDERS TO HOLD HEPARIN DOSE.
[2021-02-16] MEDS: *INSULIN REGULAR(HUMULIN R)HUM 100 UNIT/ML VIAL SQ PRN (22:02)
[2021-02-17] VITALS (29 sets, daily range): BP systolic 93–131; BP diastolic 51–68
[2021-02-17] MEDS: ZOSYN IVPB 2.25 G in IV D5W 50ml IV SCH ×4 (04:15→21:14)
[2021-02-17] MEDS: HYDROCORTISONE SOD SUCCINATE 100 MG/2 ML VIAL IV SCH ×3 (04:15→21:13)
[2021-02-17 05:09] LABS: CARBON DIOXIDE 19 mmol/L (21-32); CHLORIDE 110 mmol/L (98-107); CREATININE 3.8 mg/dL (0.6-1.3); GLUCOSE 213 mg/dL (74-106); POTASSIUM 5.3 mmol/L (3.5-5.1); SODIUM SERUM 145 mmol/L (136-145)
[2021-02-17 05:35] LABS: UREA NITROGEN, BLOOD 143 mg/dL (7-18)
[2021-02-17] MEDS: GLUCERNA 1.2 1,000 ML BOTTLE NG PRN (05:54)
--- NOTE | 2021-02-17 07:10 | NUR ---
RN NOTE PT ON MECH VENT. NO ACUTE RESPIRATORY DISTRESS O2 SAT AT 100%. WITH OGT IN PLACE, AUSCULTATED FOR PLACEMENT RUNNING ON GLUCERNA FEEDING AT 20ML/HR. NO RESIDUAL NOTED. KEPT HOB ELEVATED. RIGHT FEMORAL TLC INTACT AND PATENT FLUSHED ASEPTICALLY. YATES CATHETER DRAINING YELLOW URINE OUTPUT 300CC. BED LOCKED AND IN LOWEST POSITION. CALL LIGHT WITHIN REACH. WILL ENDORSE TO AM SHIFT.
--- NOTE | 2021-02-17 07:20 | NUR ---
RN NOTE RECEIVED PATIENT IN BED, OBTUNDED AT THIS TIME, INTUBATED WITH MECHANICAL VENTILATOR O2 SAT OF 98%, TACHYPNEA NOTED, PATIENT WITH GLUCERNA 1.2 TUBE FEEDING TOLERATING WELL, RIGHT FEMORAL TLC NOTED INFUSING WELL, RIGHT AC 18 FLUSHING WELL, WILL CONTINUE TO MONITOR PATIENT, SAFETY MEASURE OBSERVED, BED WHEELS LOCK, CALL LIGHT WITHIN REACH.
[2021-02-17] MEDS: BLOOD SUGAR DIAGNOSTIC 1 EACH STRIP VI SCH ×4 (07:38→22:13)
--- NOTE | 2021-02-17 08:00 | NUR ---
RN NOTE PATIENT SEEN BY DR. RC MD AT BED SIDE, NOTIFIED MD REGARDING LAB RESULT , POTASSIUM OF 5.3, BUN OF 143 AND CREATININE OF 3.8. MD MADE AWARE. PER DR. TATUM HOLD HEPARIN IF PLATELET IS <100.
--- NOTE | 2021-02-17 08:01 | NUR ---
RN NOTE PATIENT SEEN BY DR. TATUM, NOTIFIED LAB RESULT OF POTASSIUM OF 5.3, BUN OF 143 AND CREATININE OF 3.8. PER DR. TATUM HOLD HEPARIN IF PLATELET IS <100.
[2021-02-17] MEDS: HEPARIN SODIUM, PORCINE 5000 UNITS/1 ML VIAL SQ SCH ×2 (08:16→21:00)
[2021-02-17] MEDS: AMIODARONE HCL 200 MG TABLET PO SCH ×3 (08:20→17:02)
[2021-02-17] MEDS: LEVETIRACETAM (500MG) 1,000 MG in IV NS 0.9% 100 ML IV SCH (08:20)
[2021-02-17] MEDS: DEXAMETHASONE SOD PHOSPHATE 10 MG/ML VIAL IV SCH (08:21)
--- NOTE | 2021-02-17 09:00 | NUR ---
RN NOTE PATIENT ACCU CHECK BLOOD SUGAR WAS 251 ADMINISTERED 9 UNITS PER SLIDING SCALE, WITNESS BY NURSE MANE RODRIGUEZ, PHARMACIST MADE AWARE THAT eMAR WAS MISS BEING SIGNED.
--- NOTE | 2021-02-17 09:48 | NUR ---
RN NOTE COVID 19 PCR DONE ORDERED, SPECIMEN SENT TO THE LAB
[2021-02-17] MEDS: INSULIN REGULAR, HUMAN 100 UNIT/ML 3 ML VIAL SQ PRN ×2 (11:43→17:12)
[2021-02-17] MEDS ORDERED: GLUCERNA 1.2 1,000 ML BOTTLE NG PRN (16:30)
[2021-02-17] MEDS: ACETAMINOPHEN 325 MG TABLET PO PRN (17:24)
[2021-02-17] MEDS: LORAZEPAM INJ 2 MG/ML VIAL IV PRN (17:24)
--- NOTE | 2021-02-17 19:12 | NUR ---
RN NOTE RECEIVED PATIENT IN BED, OBTUNDED AT THIS TIME, INTUBATED WITH MECHANICAL VENTILATOR O2 SAT OF 98%, TACHYPNEA NOTED, PATIENT WITH GLUCERNA 1.2 @40 cc/hr TUBE FEEDING TOLERATING WELL, RIGHT FEMORAL TLC NOTED INFUSING WELL, RIGHT AC 18 FLUSHING WELL, HOLD HEPARIN PER DR. TATUM IF PLT IS <100 , ATIVAN GIVEN ORDERED, CALLED RP FOR UPDATE AND REGARDING WINDOW VIST, WILL CONTINUE TO MONITOR PATIENT, SAFETY MEASURE OBSERVED, BED WHEELS LOCK, CALL LIGHT WITHIN REACH. WILL ENDORSE TO NOC SHIFT.
--- NOTE | 2021-02-17 19:30 | NUR ---
RN NOTE PT RECEIVED IN BED. PT IS TRACH/VENT WITH SETTINGS AT AC:30, TV:450, FIO2:40%, AND PEEP 5. TOLERATING VENT SETTINGS WELL WITH OXYGEN SATURATION 100%. PT IS UNRESPONSIVE. PT SHOWING NSR WITH CONTROLLED A-FIB. GLUCERNA RUNNING AT 40 ML/HR. GT FLUSHED WITH NO RESIDUAL NOTED. YATES CATH NOTED. RIGHT FEMORAL TLC AND RIGHT AC #18 NOTED. LINES FLUSHED, PATENT, AND INTACT WITH NO SIGNS OF INFILTRATION. ALL SAFETY MEASURES IMPLEMENTED. BED ALARM ON. BED LOCKED AND IN LOWEST POSITION. WILL CONTINUE TO MONITOR AND ASSESS FOR ANY CHANGES THROUGHOUT SHIFT.
--- NOTE | 2021-02-17 21:09 | NUR ---
RN NOTE HELD HEPARIN PER MD ORDER DUE TO LOW PLATELETS OF 83.
[2021-02-17] MEDS: LEVETIRACETAM SOL (5 ML) 100 MG/ML UDC GT SCH (21:13)
--- NOTE | 2021-02-17 22:00 | NUR ---
RN/ICU-ASSUMED CARE OF THIS PT.OBTUNDED, ON THE VENT PER ETT, ON AC MODE, SATS.-100%, EKG SR, BP-112/55. ON TUBE FEEDS W/ NO RESIDUALS. ON CONTACT AND AIRBORNE ISOLATION FOR COVID 19, PRECAUTIONS IN EFFECT. PT. IS A "DNR" STATUS. AFEBRILE. NO S/S OF PAIN OR DISCOMFORT.
[2021-02-17] MEDS: *INSULIN REGULAR(HUMULIN R)HUM 100 UNIT/ML VIAL SQ PRN (22:11)
--- NOTE | 2021-02-17 22:30 | NUR ---
RN/ICU-NOTED DTI/REDNESS IN SACRAL AREA, CLEANSED W/ NS, PAT DRY W/ 4X4,REMEDY APPLIED, COVERED W/ MEPILEX. CONTINUE TO REPOSITION PT. Q2HRS. AND PRN NEEDED, HEELS OFFLOADED AT ALL TIMES. WOUND CARE CONSULT INITIATED.
--- NOTE | 2021-02-17 23:00 | NUR ---
RN/ICU- NOTED PURPLISH COLD FINGERS ISHA, MORE ON RIGHT INDEX FINGER.
[2021-02-18] VITALS (24 sets, daily range): BP systolic 109–138; BP diastolic 56–75
[2021-02-18] MEDS: ZOSYN IVPB 2.25 G in IV D5W 50ml IV SCH ×4 (04:15→21:28)
[2021-02-18] MEDS: HYDROCORTISONE SOD SUCCINATE 100 MG/2 ML VIAL IV SCH ×3 (04:36→20:46)
[2021-02-18] MEDS: IV NS 0.9% 250 ML IV PRN (04:40)
[2021-02-18 04:43] LABS: HEMATOCRIT 29 % (39-51); HEMOGLOBIN 9.6 g/dL (13.5-17.5); LYMPHOCYTES # (AUTO) 0.2 K/uL (0.8-4.8); LYMPHOCYTES % (AUTO) 1.7 % (20.0-44.0); MEAN CORPUSCULAR HGB CONC 33 g/dl (31.0-36.0); MEAN CORPUSCULAR VOLUME 100 fL (80-96); MONOCYTES # (AUTO) 0.4 K/uL (0.1-1.30); MONOCYTES % (AUTO) 3.1 % (2.0-12.0); NEUTROPHILS # (AUTO) 11.8 K/uL (1.8-8.9); NEUTROPHILS % (AUTO) 95.2 % (43.0-81.0); PLATELET COUNT (AUTO) 103 K/uL (150-450); RED BLOOD CELL COUNT(AUTO) 2.92 MIL/uL (4.5-6.0); WHITE BLOOD COUNT (AUTO) 12.4 K/uL (4.3-11.0)
[2021-02-18 04:48] LABS: CALCIUM, SERUM 8.1 mg/dL (8.5-10.1); CARBON DIOXIDE 19 mmol/L (21-32); CHLORIDE 111 mmol/L (98-107); CREATININE 4.6 mg/dL (0.6-1.3); GLUCOSE 283 mg/dL (74-106); MAGNESIUM 2.9 mg/dL (1.8-2.4); POTASSIUM 5.1 mmol/L (3.5-5.1); SODIUM SERUM 146 mmol/L (136-145)
[2021-02-18 05:19] LABS: PHOSPHORUS 8.3 mg/dL (2.5-4.9); UREA NITROGEN, BLOOD 166 mg/dL (7-18)
--- NOTE | 2021-02-18 06:03 | NUR ---
RN/ICU- REMAINS OBTUNDED, ON THE VENT PER ETT,SATS.100%, NO S/S OF DISTRESS OR PAIN.
--- NOTE | 2021-02-18 07:00 | NUR ---
RN NOTE RECEIVED PT ORALLY INTUBATED, NO SEDATION, PT, DOES NOT FOLLOW COMMAND, PUPILS SLUGGISH, REACTIVE TO LIGHT. O2 SAT WNL, TOLERATING VENT SETTING WELL, O2 SAT WNL, WITH OGT IN PLACE, AUSCULTATED FOR PLACEMENT/PATENCY. ON GLUCERNA FEEDING AT 40ML/HR. MINIMAL RESIDUALS WERE NOTED. KEPT HOB ELEVATED. RIGHT FEMORAL TLC INTACT AND PATENT, ALL FLUSHES WELL. YATES DRAINING CLEAR URINE OUTPUT. ALL SAFETY MEASURES IN PLACE PER PROTOCOL. WILL CONTINUE TO MONITOR.
--- NOTE | 2021-02-18 07:34 | NUR ---
WOUND CARE CONSULT: REVIEWED CHART, NURSING DOCUMENTATION AND PHOTOS WHICH INDICATE SACRAL DEEP TISSUE INJURY IN EVOLUTION. REDNESS WAS NOTED IN ADMISSION PHOTO OF SACRUM. PT NOTED TO HAVE MULTIPLE CO-MORBIDITIES INCLUDING COVID 19 PNEUMONIA, S/P CARDIOPULMONARY ARREST (CURRENTLY INTUBATED), COPD, CHF, GASTRIC CANCER, DIABETES AND ACUTE RENAL FAILURE. DUE TO MULTIPLE CO-MORBIDITIES, FURTHER SKIN BREAKDOWN MAY BE UNAVOIDABLE. DISCUSSED SKIN PROTECTION AND WOUND CARE WITH NURSING STAFF. PT IS ON [place] ISOF[place] LOW AIRLOSS BED. IN AGREEMENT WITH PLAN OF CARE.
[2021-02-18] MEDS: BLOOD SUGAR DIAGNOSTIC 1 EACH STRIP VI SCH ×4 (08:17→21:29)
[2021-02-18] MEDS: INSULIN REGULAR, HUMAN 100 UNIT/ML 3 ML VIAL SQ PRN ×3 (08:17→17:18)
[2021-02-18] MEDS: AMIODARONE HCL 200 MG TABLET PO SCH ×3 (08:18→16:41)
[2021-02-18] MEDS: DEXAMETHASONE SOD PHOSPHATE 10 MG/ML VIAL IV SCH (08:18)
[2021-02-18] MEDS: LEVETIRACETAM SOL (5 ML) 100 MG/ML UDC GT SCH ×2 (08:18→20:47)
[2021-02-18] MEDS: HEPARIN SODIUM, PORCINE 5000 UNITS/1 ML VIAL SQ SCH ×3 (09:00→21:00)
[2021-02-18] MEDS: NEPRO 1,000 ML BOTTLE GT SCH (11:31)
--- NOTE | 2021-02-18 12:00 | NUR ---
RN NOTES ORAL AND ETT CARE DONE , CONTINUE TO MONITOR.
--- NOTE | 2021-02-18 16:42 | NUR ---
RT PATIENT REMAINS ORALLY INTUBATED ON MECH VENT. PATIENT NOT SEDATED AND NON RESPONSIVE. AMBU BAG AT HOB. Addendum: 02/18/21 at 1643 by DIMITRIOS LAST RT Amended: Links added.
--- NOTE | 2021-02-18 18:00 | NUR ---
RN NOTES PT REMAINS INTUBATED , DOES NOT FOLLOW COMMAND, OBTUNDED, TOLERAING VENT SETTING WELL , TF AT 40CC/HR RUNNING , NO RESIDUAL NOTED, NO SIGNFICANT CHANGES NOTED ON THIS SHIFT , WILL ENDORSE TO MEDIA RELATIONS MANAGER NURSE FOR CONTINUITY OF CARE
--- NOTE | 2021-02-18 19:45 | NUR ---
ICU/APRICOT PACKER RECIEVED REPORT FROM DAY SHIFT NURSE. SEE FLOWSHEET FOR ASSESSMENT, THERE ARE SKIN ISSUES THAT ARE ADDRESSED ON THE FLOWSHEET, ALONG WITH INTERVENTIONS TO EACH. THERE ARE NO IV'S THAT NEEDS TO BE ADDRESSED ON THE IV SPREAD SHEET. PT WAS TURNED AND REPOSITIONED FOR COMFORT AND CARE. NO ACUTE DISTRESS SEEN AND WILL CONTINUE TO MONITOR THIS PT.
--- NOTE | 2021-02-18 21:34 | NUR ---
ICU/CONTRACTING EXECUTIVE HEPARIN WAS HELD DUE TO LOW PLATELETS. WILL CONTINUE TO MONITOR THIS PT.
--- NOTE | 2021-02-18 22:50 | NUR ---
ICU/REMARKETING MANAGER PT WAS GIVEN ORAL CARE ALONG AT THIS TIME. PT TOLERATED THIS WELL, REMAINS ON CURRENT VENT SETTINGS WITH SATURATION AT 100%. AT THIS TIME PM CARE WAS PROVIDE, WHICH WAS TOLERATED WELL. PT WAS THEN TURNED AND REPOSITIONED FOR COMFORT AND CARE, WILL CONTINUE TO MONITOR THIS PT. NO ACUTE DISTRESS WAS SEEN AT THIS TIME.
[2021-02-19] VITALS (24 sets, daily range): BP systolic 103–137; BP diastolic 47–69
--- NOTE | 2021-02-19 | NUR ---
ICU/OCCUPATIONAL HEALTH RN @2200 ACCU CHECK WAS 115, THERE IS NO COVERAGE FOR THIS. WILL CONTINUE TO MONITOR THIS PT. PT WAS TURNED AND REPOSITIONED FOR COMFORT AND CARE.
[2021-02-19 04:10] LABS: BASOPHILS % (AUTO) 0.1 % (0.0-2.0); HEMATOCRIT 28 % (39-51); LYMPHOCYTES # (AUTO) 0.2 K/uL (0.8-4.8); LYMPHOCYTES % (AUTO) 1.9 % (20.0-44.0); MEAN CORPUSCULAR HGB CONC 33 g/dl (31.0-36.0); MEAN CORPUSCULAR VOLUME 99 fL (80-96); MONOCYTES # (AUTO) 0.3 K/uL (0.1-1.30); MONOCYTES % (AUTO) 2.6 % (2.0-12.0); NEUTROPHILS # (AUTO) 12.4 K/uL (1.8-8.9); NEUTROPHILS % (AUTO) 95.4 % (43.0-81.0); PLATELET COUNT (AUTO) 105 K/uL (150-450); RED BLOOD CELL COUNT(AUTO) 2.78 MIL/uL (4.5-6.0)
--- NOTE | 2021-02-19 04:30 | NUR ---
ICU/ASSISTANT ATTORNEY GENERAL PT WAS GIVEN ORAL CARE ALONG AT THIS TIME. PT TOLERATED THIS WELL, REMAINS ON CURRENT VENT SETTINGS WITH SATURATION AT 100%. AT THIS TIME AM CARE WAS PROVIDE, WHICH WAS TOLERATED WELL. PT WAS THEN TURNED AND REPOSITIONED FOR COMFORT AND CARE, WILL CONTINUE TO MONITOR THIS PT. NO ACUTE DISTRESS WAS SEEN AT THIS TIME.
[2021-02-19] MEDS: HYDROCORTISONE SOD SUCCINATE 100 MG/2 ML VIAL IV SCH ×3 (04:36→21:32)
[2021-02-19] MEDS: ZOSYN IVPB 2.25 G in IV D5W 50ml IV SCH ×4 (04:36→21:33)
[2021-02-19 04:51] LABS: CALCIUM, SERUM 7.9 mg/dL (8.5-10.1); CARBON DIOXIDE 17 mmol/L (21-32); CHLORIDE 109 mmol/L (98-107); CREATININE 4.9 mg/dL (0.6-1.3); GLUCOSE 224 mg/dL (74-106); MAGNESIUM 3.1 mg/dL (1.8-2.4); POTASSIUM 5.1 mmol/L (3.5-5.1); SODIUM SERUM 144 mmol/L (136-145)
[2021-02-19 04:56] LABS: PHOSPHORUS 8.1 mg/dL (2.5-4.9); UREA NITROGEN, BLOOD 187 mg/dL (7-18)
[2021-02-19] MEDS: IV NS 0.9% 250 ML IV PRN (05:05)
[2021-02-19] MEDS: ACETAMINOPHEN 325 MG TABLET PO PRN (05:05)
[2021-02-19] MEDS: BLOOD SUGAR DIAGNOSTIC 1 EACH STRIP VI SCH ×4 (05:05→22:10)
[2021-02-19] MEDS: INSULIN REGULAR, HUMAN 100 UNIT/ML 3 ML VIAL SQ PRN ×2 (05:06→18:20)
--- NOTE | 2021-02-19 05:30 | NUR ---
ICU/.NET ARCHITECT TYLENOL GIVEN VIA G/TUBE FOR INCREASED HEART RATE, PT APPEARED TO BE IN PAIN. WILL CONTINUE TO MONITOR THIS PT.
--- NOTE | 2021-02-19 07:30 | NUR ---
RN OPENING NOTES Patient in bed, obtunded and on mechanical vent setting tolerating well. No visible sign of distress noted. No grimacing or moaning noted. On glucerna tube feeding via orogastirc tube, francisco javier well. Right femoral line triple lumen, saline lock. HOB kept elevated to prevent aspiration. Mills cath noted with clear yellow urine.Will continue to monitor. Call light with in reach.
[2021-02-19] MEDS: HEPARIN SODIUM, PORCINE 5000 UNITS/1 ML VIAL SQ SCH ×2 (09:00→21:00)
[2021-02-19] MEDS: LEVETIRACETAM SOL (5 ML) 100 MG/ML UDC GT SCH ×2 (09:20→21:33)
[2021-02-19] MEDS: AMIODARONE HCL 200 MG TABLET PO SCH ×3 (09:21→17:06)
[2021-02-19] MEDS: DEXAMETHASONE SOD PHOSPHATE 10 MG/ML VIAL IV SCH (09:21)
--- NOTE | 2021-02-19 10:05 | NUR ---
SS note SS requested to contact pt's family regarding visitation. SW contacted pt's daughter, Mily Metzger, , and notified her that she is able to visit the pt outside of his room and informed her of current visitation policies due to Covid-19. No further SS intervention at this time, however, SW will remain available as needed.
[2021-02-19] MEDS: *INSULIN REGULAR(HUMULIN R)HUM 100 UNIT/ML VIAL SQ PRN ×2 (13:07→22:12)
[2021-02-19] MEDS ORDERED: Sodium Bicarbonate 100 MEQ in IV D5W 1,000 ML IV ONE (13:30)
--- NOTE | 2021-02-19 17:01 | NUR ---
Family requested to be at the bedside for extubation. Spoke to nursing mammography supervisor regarding patient's family request. Per management, only one person allowed in the room with full PPE gear and only 10 minutes in room at the exact time of extubation with copies of covid vaccines along with pcr results. Daughter made aware and understood risks. Nursing will be endorsed to.
[2021-02-19] MEDS: NEPRO 1,000 ML BOTTLE GT SCH (18:36)
--- NOTE | 2021-02-19 19:23 | NUR ---
RN CLOSING NOTES Patient in bed, obtunded and on mechanical vent setting tolerating well. No visible sign of distress noted. No grimacing or moaning noted. On glucerna tube feeding via orogastirc tube, francisco javier well. Right femoral line running at 40 cc/hour. HOB kept elevated to prevent aspiration. Patient had bm x 3 during shift. Mills cath output noted with 140 cc. Endorsed to next shift for CHERIE. Night RN made aware.
--- NOTE | 2021-02-19 19:29 | NUR ---
Received order from Dr Shelley for Protonix 40 mg iv daily after informing regarding black stools
--- NOTE | 2021-02-19 20:17 | NUR ---
PT INTUBATED [facility]. 7.5 ETT SECURED AT 25CM LIP LINE. PT TOLERATING VENT SETTINGS. VENT ALARMS SET AND AUDIBLE. CONTINUE TO MONITOR. Addendum: 02/19/21 at 2019 by PABLITO BEEBE RT Amended: Links added.
[2021-02-19] MEDS: PANTOPRAZOLE 40 MG VIAL IV SCH (21:32)
--- NOTE | 2021-02-19 21:35 | NUR ---
RN NOTES INFORMED MAHENDRA BATTER MIXER ONCSARA THAT PATIENT IS ON HEPARIN TONIGHT. BUT REPORTED BY PREVIOUS SHIFT THAT PATIENT HAD 3 LOOSE BLACK STOOL TODAY. AND PER MISC. TO HOLD HAPARIN IF PLATELET IS <100. THIS MORNING PATIENT PLATELET IS 105 BUT PATIENT HAS SIGN OF BLEEDING FROM STOOL OUTLOOK. ONCALL ORDERED TO HOLD IT TONIGHT. NOTED AND CARRIED OUT ORDER.
[2021-02-20] VITALS (21 sets, daily range): BP systolic 0–142; BP diastolic 34–67
[2021-02-20] MEDS: HYDROCORTISONE SOD SUCCINATE 100 MG/2 ML VIAL IV SCH ×2 (05:03→12:10)
[2021-02-20] MEDS: ZOSYN IVPB 2.25 G in IV D5W 50ml IV SCH ×2 (05:03→09:12)
[2021-02-20] MEDS: IV NS 0.9% 250 ML IV PRN (05:25)
--- NOTE | 2021-02-20 07:01 | NUR ---
RN NOTES PATIENT REMAINEND THE SAME WITH ETT 7.5 AND 5 CM AT LIPLINE. VENT SETTING AC 30 TV 450 FIO2 40% AND PEEP 5 OBTUNDED NO SEDATION NEEDED. SR AND OCCATIONAL AFIB ON MONITOR. GTF INTACT AND PATENT WITH LOW RESIDUAL. IV SITE ON RIGHT FEMORAL AND RAC INTACT AND PATENT CONTINUE WITH SODIUM BICARB IN D5W @ 40 ML/HR. AFEBRILE. VSS. BED BATH DONE AND TOLERATED WELL. STEN SON CALLED AND JUST GIVE HEADS UP REGARDING THEIR PLAN FOR POSS. COMFORT CARE.
[2021-02-20] MEDS: BLOOD SUGAR DIAGNOSTIC 1 EACH STRIP VI SCH ×2 (08:00→11:50)
--- NOTE | 2021-02-20 08:00 | NUR ---
rn notes RECEIVED PATIENT WITH ETT// VENT SETTING FIO2-40, AND PEEP- 5. PATIENT OFF SEDATION, CONFUSED. SR -80, AND OCCASIONALLY AFIB ON MONITOR. OGTF INTACT AND PATENT NO RESIDUAL RESIDUAL. IV SITE ON RIGHT FEMORAL , CONTINUE WITH SODIUM BICARB IN D5W @ 40 ML/HR. AFEBRILE. VSS. YATES DRAINING VIA GRAVITY POOR OUTPUT, KEEP HOB ELEVATED. WILL FOLLOW UP.
[2021-02-20] MEDS: LEVETIRACETAM SOL (5 ML) 100 MG/ML UDC GT SCH (08:09)
[2021-02-20] MEDS: DEXAMETHASONE SOD PHOSPHATE 10 MG/ML VIAL IV SCH (08:10)
[2021-02-20] MEDS: PANTOPRAZOLE 40 MG VIAL IV SCH (08:10)
[2021-02-20] MEDS: AMIODARONE HCL 200 MG TABLET PO SCH ×2 (08:10→12:10)
[2021-02-20] MEDS: HEPARIN SODIUM, PORCINE 5000 UNITS/1 ML VIAL SQ SCH (08:13)
[2021-02-20] MEDS: INSULIN REGULAR, HUMAN 100 UNIT/ML 3 ML VIAL SQ PRN ×2 (08:56→11:52)
--- NOTE | 2021-02-20 13:00 | NUR ---
rn notes Kaylee patient already daughter, and son in low. Per daughter daughter make decision to palliative care , notified hospitalist Dr Shelley and get extubation order fot comfort measure. order taken and carried out.
--- NOTE | 2021-02-20 13:03 | NUR ---
RN NOTES NOTIFIED RT FOR EXTUBATION ORDER OF COMFORT CARE.
[2021-02-20] MEDS ORDERED: DC PROPOFOL WHEN EXTUBATED XX PRN (13:05)
--- NOTE | 2021-02-20 13:05 | NUR ---
PT EXTUBATED AND PLACED ON 2LPM N/C PER MD ORDER.
--- NOTE | 2021-02-20 13:05 | NUR ---
RN NOTES PATIENT GET EXTUBATED FROM VENT VIA RT, STOP FEEDING , AND IV INFUSION AT THIS TIME WELL. DAUGHTER, AND BACK TO VISIT PATIENT LAST TIME AFTER EXTUBATION. ACCORDING DAUGHTER PATIENT BODY AFTER PASSING WILL SEND TO THE [place] .
[2021-02-20] MEDS ORDERED: MORPHINE SULFATE/PF 30 MG in IV NS 0.9% 27 ML, PCA TOTAL VOLUME 1 BAG IV PRN (14:00)
[2021-02-20] MEDS ORDERED: MORPHINE SULFATE PF DRIP 250 MG in IV D5W 240 ML IV PRN (14:00)
--- NOTE | 2021-02-20 14:03 | NUR ---
RN NOTES GET ORDER MORPHINE DRIP 4 MG/ML SCHEDULED FOR COMFORT MEASURE, ORDER TAKEN AND CARRIED OUT.
--- NOTE | 2021-02-20 15:07 | NUR ---
rn notes started morphine drip at this time 4 mcg/hr. patient P-70, bp 113/49, o2-100 % via nc 2l. will monitoring.
--- NOTE | 2021-02-20 16:04 | NUR ---
rn notes patients breathing pattern is changed drops bp- 86/34 , p-63, o2- 99%, noticed change of rhythm.
--- NOTE | 2021-02-20 17:48 | NUR ---
PATIENT NOTED ASYSTOLE ON MONITOR. NO HEART TONE. NO PALPABLE PULSES. PUPILS FIXED AND DILATED. PATIENT ON COMFORT MEASURES ONLY. PATIENT PRONOUNCED.
--- NOTE | 2021-02-20 18:20 | NUR ---
RN NOTES PATIENT PRONOUNCED VIA CHARGE NURSE TONE RN.PATIENT HAS NO AUDIBLE HEART TONE , NO BP, NO RR. NOTIFIED HOSPITALIST DR TATUM, FIELD UNDERWRITER, ADMITTING, AND DAUGHTER NAME TRACHEA. POST MORTEM CARE DONE , LABELED , PATIENT HAS NO BELONGINGS, AND ID TAGS APPLIED. , CALLED [facility] AND SPOKE PERSON NAME IS GERMAINE . CASE # IS [id number]. TRANSFERRED PATIENT BODY TO [facility] WITH TWO SECURITY PERSONNEL.
[2021-02-21] MEDS ORDERED: PANTOPRAZOLE 40 MG/PACK PACK GT SCH (09:00)
== END 2021-02-20 17:48 | DRG 207 ==
LOC: ER 16:25 → ICU 20:31
PROVIDERS: ADMIT Internal Medicine; ATTEND Internal Medicine
PROC: 5A1955Z Respiratory Ventilation, Greater than 96 Consecutive Hours (ICD-10-PCS; principal; 2021-02-11)
PROC: 0BH18EZ Insertion of Endotracheal Airway into Trachea, Via Natural or Artificial Opening Endoscopic (ICD-10-PCS; 2021-02-11)
PROC: 5A2204Z Restoration of Cardiac Rhythm, Single (ICD-10-PCS; 2021-02-11)
PROC: 06HM33Z Insertion of Infusion Device into Right Femoral Vein, Percutaneous Approach (ICD-10-PCS; 2021-02-11)
PROC: B54BZZA Ultrasonography of Right Lower Extremity Veins, Guidance (ICD-10-PCS; 2021-02-11)
DX: U07.1 COVID-19 (principal); J12.82 Pneumonia due to coronavirus disease 2019; J96.01 Acute respiratory failure with hypoxia; G93.41 Metabolic encephalopathy; I21.A1 Myocardial infarction type 2; I50.23 Acute on chronic systolic (congestive) heart failure; Z51.5 Encounter for palliative care; J96.02 Acute respiratory failure with hypercapnia; J44.0 Chronic obstructive pulmonary disease with (acute) lower respiratory infection; I13.0 Hypertensive heart and chronic kidney disease with heart failure and stage 1 through stage 4 chronic kidney disease, or unspecified chronic kidney disease; E87.0 Hyperosmolality and hypernatremia; J44.1 Chronic obstructive pulmonary disease with (acute) exacerbation; N17.9 Acute kidney failure, unspecified; G93.1 Anoxic brain damage, not elsewhere classified; Z86.73 Personal history of transient ischemic attack (TIA), and cerebral infarction without residual deficits; D64.9 Anemia, unspecified; D69.6 Thrombocytopenia, unspecified; E11.22 Type 2 diabetes mellitus with diabetic chronic kidney disease; I48.0 Paroxysmal atrial fibrillation; N18.30 Chronic kidney disease, stage 3 unspecified; Z85.028 Personal history of other malignant neoplasm of stomach; I50.9 Heart failure, unspecified; I49.01 Ventricular fibrillation; I46.9 Cardiac arrest, cause unspecified
CPT/HCPCS: 31720; 36415; 36600; 70450-TC; 71045-TC; 76770-TC; 80048-TC; 80076-TC; 80202-TC; 81001; 82533; 82550-TC; 82728-TC; 82803-TC; 82962-TC; 83605-TC; 83615-TC; 83735-TC; 84100-TC; 84478-TC; 84484-TC; 85025-TC; 85378-TC; 85385-TC; 85730-TC; 86140-TC; 87040-TC; 87081-TC; 87086-TC; 93307-TC; 94002-TC; 94003-TC; 94760-TC; 94799-TC; 95819-TC; 99082-TC; A6403; C9113; G0378; J0171; J0282; J0692; J1100; J1644; J1720; J1815; J1953; J2060; J2274; J2543; J2920; J3370; J3490; J7030; J7050; J7060; J7070; U0003